=== PATIENT | female | born 1935 | race Caucasian/White ===

== ENCOUNTER 2017-07-30 22:25 | Emergency (ER) | payer OTHER ==
[~2017-07-30] VITALS: Ht 152.4 cm; Wt 90.7 kg
[~2017-07-30 22:25] MED LIST: ASPI81CH43 PO; ATOR20TA50 PO; LEV50T PO; LORA-654 PO; METF-370 PO; METO25TA5 PO
[2017-07-31 03:33] LABS: Eosinophils # (auto) 0.1 uL; Monocytes # (auto) 0.9 uL; Red Cell Distribution Width 14.9 % (11.8-14.3)
[2017-07-31 03:35] LABS: Basophils # (auto) 0 uL; Basophils % (auto) 0.4 % (0.0-2.0); Eosinophils % (auto) 0.5 % (0.0-7.0); Hematocrit 40.7 % (36.0-46.0); Hemoglobin 12.8 g/dL (12.2-16.2); Lymphocytes # (auto) 1.4 uL; Lymphocytes % (auto) 11.1 % (10.0-50.0); Mean Corpuscular Hemoglobin 24.3 pg (28.0-32.0); Mean Corpuscular Hgb Conc. 31.4 g/dL (32.0-36.0); Mean Corpuscular Volume 77.4 fL (80.0-100.0); Neutrophils # (auto) 10.1 uL; Platelet Count (auto) 340 10^3/uL (140-450); Red Blood Cells 5.26 10^6/uL (4.0-5.20); White Blood Cell 12.4 10^3/uL (4.4-10.8)
[2017-07-31 03:44] LABS: Alanine Aminotransferase 18 U/L (13-56); Albumin 3.7 g/dL (3.4-5.0); Anion Gap 8 (5-15); Aspartate Aminotransferase 17 U/L (15-37); BUN/Creatinine Ratio 18.9; Blood Urea Nitrogen 20 mg/dL (7-18); Calcium 9.2 mg/dL (8.5-10.1); Carbon Dioxide 27 mmol/L (21-32); Chloride 101 mmol/L (98-107); GFR African American 64 mL/min; GFR Non-African American 53 mL/min; Glucose 128 mg/dL (74-106); Potassium 3.8 mmol/L (3.5-5.1); Sodium 136 mmol/L (136-145)
[2017-07-31 03:48] LABS: Alkaline Phosphatase 42 U/L (45-117); Bilirubin, Total 0.3 mg/dL (0.2-1.0); Total Protein 7.4 g/dL (6.4-8.2)
[2017-07-31 05:33] VITALS: BP 155/70
[2017-07-31 06:37] LABS: Urine Bacteria NONE SEEN /hpf (None Seen); Urine Blood Negative /uL (Negative); Urine WBC 18 /hpf (0 - 5)
[2017-08-01] MEDS ORDERED: METF-370 PO (10:15)
== END 2017-07-31 07:16 | disposition home or self-care (01) ==
LOC: EDBD 22:25 → ER 22:32
DX: S80.01XA Contusion of right knee, initial encounter (principal); S80.02XA Contusion of left knee, initial encounter; N39.0 Urinary tract infection, site not specified; R09.89 Other specified symptoms and signs involving the circulatory and respiratory systems; E11.9 Type 2 diabetes mellitus without complications; E78.5 Hyperlipidemia, unspecified; I10 Essential (primary) hypertension; E07.9 Disorder of thyroid, unspecified; Z90.710 Acquired absence of both cervix and uterus; W18.39XA Other fall on same level, initial encounter; Y93.89 Activity, other specified; Y99.8 Other external cause status; Y92.009 Unspecified place in unspecified non-institutional (private) residence as the place of occurrence of the external cause
CPT/HCPCS: 36415; 71045; 73560; 80053; 81001; 84484; 85025

== ENCOUNTER 2017-07-31 21:24 | Inpatient (IN) | payer OTHER ==
[~2017-07-31] VITALS: Ht 152.4 cm; Wt 91.9 kg
[2017-07-31] MEDS ORDERED: SODIUM CHLORIDE 0.9% 1,000 ML IV ONE (22:20)
[2017-07-31 22:31] LABS: Basophils # (auto) 0 uL; Eosinophils # (auto) 0 uL; Hematocrit 44.7 % (36.0-46.0); Monocytes # (auto) 0.9 uL; Neutrophils % (auto) 87.6 % (37.0-80.0)
[2017-07-31 22:33] LABS: Basophils % (auto) 0.2 % (0.0-2.0); Hemoglobin 14.2 g/dL (12.2-16.2); Lymphocytes % (auto) 6.7 % (10.0-50.0); Mean Corpuscular Hemoglobin 24.8 pg (28.0-32.0); Mean Corpuscular Hgb Conc. 31.8 g/dL (32.0-36.0); Mean Corpuscular Volume 77.8 fL (80.0-100.0); Monocytes % (auto) 5.5 % (0.0-12.0); Neutrophils # (auto) 13.5 uL; Platelet Count (auto) 369 10^3/uL (140-450); Red Blood Cells 5.75 10^6/uL (4.0-5.20); Red Cell Distribution Width 15.2 % (11.8-14.3); White Blood Cell 15.4 10^3/uL (4.4-10.8)
[2017-07-31 22:42] LABS: INR 1.02 (0.9-1.15); Partial Thromboplastin Time 28.6 sec (22.64-33.71); Prothrombin Time 11.1 sec (9.37-12.3)
[2017-07-31 23:04] LABS: Alanine Aminotransferase 21 U/L (13-56); Albumin 3.8 g/dL (3.4-5.0); Alkaline Phosphatase 50 U/L (45-117); Anion Gap 14 (5-15); Aspartate Aminotransferase 20 U/L (15-37); BUN/Creatinine Ratio 14.4; Bilirubin, Total 0.4 mg/dL (0.2-1.0); Blood Urea Nitrogen 15 mg/dL (7-18); Calcium 9.4 mg/dL (8.5-10.1); Carbon Dioxide 25 mmol/L (21-32); Chloride 96 mmol/L (98-107); GFR African American 65 mL/min; GFR Non-African American 54 mL/min; Glucose 173 mg/dL (74-106); Sodium 135 mmol/L (136-145); Total Protein 8.2 g/dL (6.4-8.2)
[2017-08-01] MEDS ORDERED: FUROSEMIDE 40 MG/4 ML VIAL IV ONE (02:00)
[2017-08-01] MEDS ORDERED: NITROGLYCERIN 0.4 MG SL TAB SL PRN (02:45)
[2017-08-01] MEDS ORDERED: ACETAMINOPHEN 325 MG TAB PO PRN (02:45)
[2017-08-01] MEDS ORDERED: TEMAZEPAM 15 MG CAP PO PRN (02:45)
[2017-08-01] MEDS ORDERED: LEVOFLOXACIN 500MG 100 ML IV ONE (02:45)
[2017-08-01] MEDS ORDERED: ONDANSETRON HCL 4 MG/2 ML VIAL IV PRN (02:45)
[2017-08-01] MEDS ORDERED: DEXTROSE (50%) 50ML SYRG IV PRN (02:45)
[2017-08-01 06:55] LABS: Urine Amorphous Crystal MANY /hpf (None Seen); Urine Bacteria MOD /hpf (None Seen); Urine Blood Negative /uL (Negative); Urine Mucus FEW (None Seen); Urine Specific Gravity 1.007 (1.001-1.035); Urine WBC 18 /hpf (0 - 5)
[2017-08-01] MEDS: InsuLIN REG 1unit/0.01ml Soln (100units/ml) SC SCH ×3 (07:01→19:43)
[2017-08-01] MEDS: ACCU-CHEK COMFORT CURVE STRIP VI SCH ×3 (07:01→18:00)
[2017-08-01] MEDS: LEVOTHYROXINE SODIUM 50 MCG TAB PO SCH (07:10)
[2017-08-01] MEDS: METOPROLOL TARTRATE 25 MG TAB PO SCH (10:00)
[2017-08-01] MEDS ORDERED: METF-370 PO (10:15)
[2017-08-01] MEDS: FUROSEMIDE 20 MG TAB PO SCH (10:20)
[2017-08-01] MEDS: FAMOTIDINE 20 MG TAB PO SCH ×2 (10:21→21:45)
[2017-08-01] MEDS: ENOXAPARIN SOD 40 MG/0.4 ML SYRINGE SC SCH (10:21)
[2017-08-01 20:00] VITALS: BP 149/72
[2017-08-01] MEDS ORDERED: LEVOFLOXACIN 500MG 100 ML IV SCH (22:00)
[2017-08-01] MEDS ORDERED: ATORVASTATIN 20 MG TAB PO SCH (22:00)
[2017-08-01 22:05] VITALS: BP 149/72
[2017-08-02] MEDS: InsuLIN REG 1unit/0.01ml Soln (100units/ml) SC SCH ×3 (00:20→12:47)
[2017-08-02] MEDS: ACCU-CHEK COMFORT CURVE STRIP VI SCH ×3 (00:20→12:46)
[2017-08-02 05:00] VITALS: BP 146/69
[2017-08-02] MEDS: HYDROcodone-ACET 5/325MG TAB PO PRN ×2 (06:20→15:39)
[2017-08-02] MEDS: LEVOTHYROXINE SODIUM 50 MCG TAB PO SCH (06:20)
[2017-08-02 06:43] LABS: Basophils # (auto) 0.1 uL; Eosinophils # (auto) 0.1 uL; Eosinophils % (auto) 1.3 % (0.0-7.0); Hemoglobin 13.1 g/dL (12.2-16.2); Lymphocytes # (auto) 1.2 uL; Mean Corpuscular Hgb Conc. 32.2 g/dL (32.0-36.0); Monocytes # (auto) 1.1 uL
[2017-08-02 06:46] LABS: Hematocrit 40.5 % (36.0-46.0); Lymphocytes % (auto) 12.2 % (10.0-50.0); Mean Corpuscular Hemoglobin 24.7 pg (28.0-32.0); Mean Corpuscular Volume 76.8 fL (80.0-100.0); Monocytes % (auto) 11.4 % (0.0-12.0); Neutrophils # (auto) 7.2 uL; Neutrophils % (auto) 74.1 % (37.0-80.0); Platelet Count (auto) 334 10^3/uL (140-450); Red Blood Cells 5.28 10^6/uL (4.0-5.20); Red Cell Distribution Width 14.9 % (11.8-14.3); White Blood Cell 9.7 10^3/uL (4.4-10.8)
[2017-08-02 07:06] LABS: BUN/Creatinine Ratio 21.2; Potassium 3.4 mmol/L (3.5-5.1)
[2017-08-02 07:09] LABS: Bilirubin, Total 0.3 mg/dL (0.2-1.0)
[2017-08-02 08:00] VITALS: BP 136/66
[2017-08-02] MEDS: FUROSEMIDE 20 MG TAB PO SCH (09:56)
[2017-08-02] MEDS: FAMOTIDINE 20 MG TAB PO SCH (09:56)
[2017-08-02] MEDS: METOPROLOL TARTRATE 25 MG TAB PO SCH (09:56)
[2017-08-02] MEDS: ENOXAPARIN SOD 40 MG/0.4 ML SYRINGE SC SCH (09:57)
[2017-08-02 13:00] VITALS: BP 114/55
[2017-08-02] MEDS ORDERED: POTASSIUM CHL 20 Meq TABLET PO ONE (13:45)
== END 2017-08-02 16:00 | DRG 291 ==
LOC: EDBD 21:24 → ER 21:24 → TELE 21:25 → TELE-EAST 08-01 19:22
PROVIDERS: ADMIT Nurse Practitioner; ATTEND Family Medicine
DX: I13.0 Hypertensive heart and chronic kidney disease with heart failure and stage 1 through stage 4 chronic kidney disease, or unspecified chronic kidney disease (principal); I50.33 Acute on chronic diastolic (congestive) heart failure; E11.22 Type 2 diabetes mellitus with diabetic chronic kidney disease; E11.9 Type 2 diabetes mellitus without complications; N39.0 Urinary tract infection, site not specified; W18.39XA Other fall on same level, initial encounter; E78.5 Hyperlipidemia, unspecified; I70.0 Atherosclerosis of aorta; E66.9 Obesity, unspecified; R29.6 Repeated falls; Z85.3 Personal history of malignant neoplasm of breast; Z90.710 Acquired absence of both cervix and uterus; Y93.89 Activity, other specified; Y92.098 Other place in other non-institutional residence as the place of occurrence of the external cause; Y99.8 Other external cause status; Z90.89 Acquired absence of other organs; Z88.8 Allergy status to other drugs, medicaments and biological substances; Z88.2 Allergy status to sulfonamides; Z88.5 Allergy status to narcotic agent; Z79.82 Long term (current) use of aspirin; N18.3 Chronic kidney disease, stage 3 (moderate); Z82.49 Family history of ischemic heart disease and other diseases of the circulatory system; Z88.7 Allergy status to serum and vaccine; Z68.39 Body mass index [BMI] 39.0-39.9, adult
CPT/HCPCS: 36415; 70450; 71045; 80053; 81001; 82962; 83605; 83735; 83880; 84484; 85025; 85610; 85730; 87040; 93005; 93306; 94761; 96361; 96365; 96372; J1815; J1956; J2405

== ENCOUNTER 2018-10-15 20:11 | Inpatient (IN) | payer OTHER, MEDICAID | END 2018-10-20 17:25 | LOC: TELE-EAST 10-16 20:30 → TELE 10-16 10:09 → TELE-EAST 10-16 20:16 → ER 20:11 | DX: N39.0 Urinary tract infection, site not specified (principal); J18.9 Pneumonia, unspecified organism; E44.1 Mild protein-calorie malnutrition; E11.65 Type 2 diabetes mellitus with hyperglycemia; I11.9 Hypertensive heart disease without heart failure; E03.9 Hypothyroidism, unspecified; M19.90 Unspecified osteoarthritis, unspecified site; Z86.73 Personal history of transient ischemic attack (TIA), and cerebral infarction without residual deficits; G89.29 Other chronic pain; M54.42 Lumbago with sciatica, left side; R41.82 Altered mental status, unspecified; E78.5 Hyperlipidemia, unspecified; C50.919 Malignant neoplasm of unspecified site of unspecified female breast; R06.03 Acute respiratory distress ==